=== PATIENT | male | born 1955 | race Caucasian/White ===

== ENCOUNTER 2018-02-18 19:42 | Emergency (ER) | payer OTHER, BC ==
[2018-02-18 20:10] VITALS: BMI 23.8
--- NOTE | 2018-02-18 20:10 | PDOC ---
Rapid Medical Evaluation Time Seen by Provider: 02/18/18 20:05 Medical Evaluation: 02/18/18 20:05 I have performed a brief in-person evaluation of this patient. The patient presents with a chief complaint of: Last BM but "mitchel" Last void : yesterday B/LLE weakness, Dysuria since ~0800hrs today. Pt ate a block of cheese over the past week. +flatulence Pertinent physical exam findings: abd: distended, pain on palp I have ordered the following: ABD KUB The patient will proceed to the ED for further evaluation Discharge Disposition - Referrals Referrals: Asya Corey MD [Primary Care Provider] - - Patient Instructions - Post Discharge Activity
[2018-02-18] MEDS ORDERED: ONDANSETRON 4 MG/2 ML VIAL IVPUSH ONE (22:21)
[2018-02-18] MEDS ORDERED: ONDANSETRON 4 MG/2 ML VIAL ONE (22:35)
[2018-02-18 23:08] LABS: BASO % 0.5 % (0-2.0); HEMOGLOBIN 15.4 GM/dL (11.7-16.9); LYMPH % 13.9 % (8-40); MCH 30.2 pg (25.7-33.7); MCHC 34.9 g/dl (32.0-35.9); MEAN CELL VOLUME 86.6 fl (80-96); MEAN PLT VOLUME 7.9 fl (7.5-11.1); MONO % 5.9 % (3.8-10.2); NEUT % 79.7 % (42.8-82.8); PLATELET COUNT 215 K/MM3 (134-434); RBC 5.08 M/mm3 (4.00-5.60); RDW 13.4 % (11.9-15.9); WHITE BLOOD COUNT 10.5 K/mm3 (4.0-10.0)
[2018-02-18 23:14] LABS: URINE APPEARANCE SLCLOUDY; URINE BILIRUBIN NEGATIVE (<2.0 mg/dL); URINE COLOR YELLOW; URINE GLUCOSE (UA) NEGATIVE (NEGATIVE); URINE KETONE 1+ (NEGATIVE); URINE LEUK ESTERASE NEGATIVE (NEGATIVE); URINE NITRITE NEGATIVE (NEGATIVE); URINE PROTEIN NEGATIVE (NEGATIVE); URINE UROBILINOGEN NEGATIVE mg/dL (0.2-1.0)
[2018-02-18 23:43] LABS: ALBUMIN 4.3 g/dl (3.4-5.0); ALK PHOS 134 U/L (45-117); ANION GAP 13 (8-16); BILIRUBIN,TOTAL 0.8 mg/dL (0.2-1.0); BLOOD UREA NITROGEN 12 mg/dL (7-18); CALCIUM 8.9 mg/dL (8.5-10.1); CHLORIDE 102 mmol/L (98-107); CO2 22 mmol/L (21-32); CREATININE 0.8 mg/dL (0.7-1.3); GLUCOSE,RANDOM 128 mg/dL (74-106); LIPASE 82 U/L (73-393); POTASSIUM 3.9 mmol/L (3.5-5.1); SGOT/AST 22 U/L (15-37); SGPT/ALT 35 U/L (12-78); SODIUM 137 mmol/L (136-145); TOT PROT 7.4 g/dl (6.4-8.2)
--- NOTE | 2018-02-18 23:49 | PDOC ---
History of Present Illness - General Chief Complaint: Pain Stated Complaint: Urinary Problem Time Seen by Provider: 02/18/18 20:05 History Source: Patient Exam Limitations: No Limitations - History of Present Illness Initial Comments: 02/18/18 23:44 Patient is a 62M with no significant medical history here today complaining of urinary retention since yesterday. He states that he's had some pain with urination that started in the days before the urinary retention. Endorses associated chills, lower abdominal pain, nausea and vomiting. He also states that he's had difficultly with constipation. Last bowel movement was yesterday. Denies having issues with urinary retention before. Past History - Past Medical History Allergies/Adverse Reactions: Allergies Allergy/AdvReac Type Severity Reaction Status Date / Time No Known Allergies Allergy Verified 02/18/18 20:09 - Suicide/Smoking/Psychosocial Hx Smoking History: Never smoked Have you smoked in the past 12 months: No Information on smoking cessation initiated: No Hx Alcohol Use: No Drug/Substance Use Hx: No Review of Systems - Review of Systems Comments:: 02/18/18 23:48 GENERAL/CONSTITUTIONAL: No fever or chills. No weakness. HEAD, EYES, EARS, NOSE AND THROAT: No change in vision. No sore throat. CARDIOVASCULAR: No chest pain or shortness of breath RESPIRATORY: No cough, wheezing, or hemoptysis. GASTROINTESTINAL: Positive for nausea, vomiting. Negative for diarrhea. Positive for constipation. GENITOURINARY: Positive for dysuria and urinary retention. MUSCULOSKELETAL: No joint or muscle swelling or pain. No neck or back pain. SKIN: No rash NEUROLOGIC: No headache, vertigo, loss of consciousness, or change in strength/ sensation. ENDOCRINE: No increased thirst. No abnormal weight change HEMATOLOGIC/LYMPHATIC: No anemia, easy bleeding, or history of blood clots. ALLERGIC/IMMUNOLOGIC: No hives or skin allergy. *Physical Exam - Vital Signs Last Vital Signs Temp Pulse Resp BP Pulse Ox 98.0 F 75 16 106/60 100 02/18/18 20:07 02/18/18 20:07 02/18/18 20:07 02/18/18 20:07 02/18/18 20:07 - Physical Exam Comments: 02/18/18 23:49 GENERAL: Awake, alert, and fully oriented, in moderate distress, cannot get comfortable HEAD: No signs of trauma, normocephalic, atraumatic EYES: PERRLA, EOMI, sclera anicteric, conjunctiva clear ENT: Auricles normal inspection, hearing grossly normal, nares patent, oropharynx clear without exudates. Moist mucosa NECK: Normal ROM, supple, no lymphadenopathy, JVD, or masses LUNGS: No distress, speaks full sentences, clear to auscultation bilaterally HEART: Regular rate and rhythm, normal S1 and S2, no murmurs, rubs or gallops, peripheral pulses normal and equal bilaterally. ABDOMEN: +suprapubic tenderness, no cva tenderness EXTREMITIES: Normal inspection, Normal range of motion, no edema. No clubbing or cyanosis. NEUROLOGICAL: Cranial nerves II through XII grossly intact. Normal speech, normal gait, no focal sensorimotor deficits SKIN: Warm, Dry, normal turgor, no rashes or lesions noted. ED Treatment Course - LABORATORY CBC & Chemistry Diagram: 02/18/18 21:50 02/18/18 21:50 - ADDITIONAL ORDERS Additional order review: Laboratory Results 02/18/18 21:50 Urine Color Yellow Urine Appearance Slcloudy Urine pH 6.0 Ur Specific [place] 1.023 Urine Protein Negative Urine Glucose (UA) Negative Urine Ketones 1+ H Urine Blood Negative Urine Nitrite Negative Urine Bilirubin Negative Urine Urobilinogen Negative Ur Leukocyte Esterase Negative 02/18/18 21:50 RBC 5.08 MCV 86.6 MCHC 34.9 RDW 13.4 MPV 7.9 Neutrophils % 79.7 Lymphocytes % 13.9 Monocytes % 5.9 Eosinophils % 0.0 Basophils % 0.5 - Medications Given in the ED: ED Medications Discontinued Medications Generic Name Dose Route Start Last Admin Trade Name Freq PRN Reason Stop Dose Admin Ondansetron HCl 4 mg 02/18/18 22:21 02/18/18 22:24 Zofran Injection IVPUSH 02/18/18 22:22 4 mg ONCE ONE Administration Medical Decision Making - Medical Decision Making 02/18/18 23:50 Patient is a 62M with no significant medical history here today with urinary retention. Vital signs normal and stable. Kim placed, labs drawn, zofran given for episode of vomiting in ED. Patient feels much improved after kim placed. 700cc of fluid drained initially. Likely discharge with bag and outpatient follow up. 02/19/18 00:37 Laboratory Tests 02/18/18 02/18/18 02/18/18 21:50 21:50 21:50 WBC 10.5 H Hgb 15.4 Plt Count 215 BUN 12 Creatinine 0.8 Lipase 82 Urine Ketones 1+ H Urine Nitrite Negative Ur Leukocyte Esterase Negative CBC normal. CMP reassuring. UA negative. Will discharge home with urology follow up and leg bag. *DC/Admit/Observation/Transfer Diagnosis at time of Disposition: Urinary retention - Discharge Dispostion Disposition: HOME Condition at time of disposition: Good Decision to Admit order: No - Referrals Referrals: Asya Corey MD [Primary Care Provider] - Segun Powers MD [Staff Physician] - - Patient Instructions Printed Discharge Instructions: DI for Urinary Retention in Men Additional Instructions: You were seen today in the ED for urinary retention. Please follow up with a urologist in the next few days. Please return if you have any new, worsening or concerning symptoms. - Post Discharge Activity
--- NOTE | 2018-02-19 00:03 | PDOC ---
Attending Attestation - Resident Resident Name: Christiano Arrington - ED Attending Attestation I have performed the following: I have examined & evaluated the patient, The case was reviewed & discussed with the resident, I agree w/resident's findings & plan, Exceptions are as noted - HPI HPI: 02/19/18 00:03 62yoM w/ hx of "mild" BPH presnet w/ first episode of urinary retention. no fevers, + abd pain and chills w/ vomiting. examination after kim placed w/ benign abdomen. Kim w/ 900mL clear urine after placement. - Physicial Exam PE: 02/19/18 00:04 as above - Medical Decision Making 02/18/18 23:58 62yoM presnes w/ acute urinary retention. Never had this before. Pt feels 100% better after kim placement - kim to leg bag - DC w/ Uro f/u. Has a urologist to see -- his is followed by urology.
[2018-02-19 02:12] VITALS: BP 110/68; PULSE 71; TEMP 97.9
== END 2018-02-19 01:40 | disposition home or self-care (01) ==
LOC: JER 19:42
PROC: 0T9B70Z Drainage of Bladder with Drainage Device, Via Natural or Artificial Opening (ICD-10-PCS; principal; 2018-02-18)
DX: R33.8 Other retention of urine (principal)
CPT/HCPCS: 36415; 51702; 80053; 81003; 83690; 85025; 87086; 99281-25